=== PATIENT | male | born 1945 | race Caucasian/White ===

== ENCOUNTER 2017-06-27 22:59 | Emergency (ER) | payer OTHER ==
[~2017-06-27] VITALS: Ht 177.8 cm; Wt 90.7 kg
[~2017-06-27 22:59] MED LIST: Amlodipine Bes2.5 MG PO; GABA100 PO; GLIP2.5ER PO; HYDSUL200 PO; LOSARTAN POTASS50 MG; Metformin HCl1000 MG PO; ROSU10TA PO; ROSUVASTATIN CA40 MG PO
[2017-06-28 00:35] LABS: Source, Urine Catheter
[2017-06-28 00:37] LABS: Bilirubin, Urine Neg (Neg); Blood, Urine 5+ (Neg); Glucose Qualitative, Urine 2+ (Neg); Ketones, Urine Neg (Neg); Leukocyte Esterase, Urine 1+ (Neg); Nitrite, Urine Neg (Neg); Protein, Urine 3+ (Neg); Urobilinogen, Urine NORM (Normal); pH, Urine 6.5 (5.0-8.0)
[2017-06-28 00:40] LABS: Appearance, Urine Hazy (Clear); Color, Urine Amber (P-Yellow)
[2017-06-28 00:44] LABS: Bacteria Rare /hpf; Red Blood Cells, Urine TNTC /hpf (0-2); Squamous Epithelial Cells Not Seen /hpf (Few); White Blood Cells, Urine 0-2 /hpf (0-5)
[2017-06-28] MEDS ORDERED: Flomax0.4 MG PO (01:00)
== END 2017-06-28 01:34 | disposition home or self-care (01) ==
LOC: ER 22:59
PROVIDERS: Physician Assistant
DX: N30.91 Cystitis, unspecified with hematuria (principal); Z79.899 Other long term (current) drug therapy; Z79.84 Long term (current) use of oral hypoglycemic drugs
CPT/HCPCS: 51702; 81001; 82947; 87086; 99283

== ENCOUNTER → 2018-11-17 | Outpatient (CLI) | payer OTHER ==
[~2018-11-17] MED LIST changes: +Aspirin EC81 MG PO; +ELIQUIS5 MG PO; +FAMO20 PO; +Flomax0.4 MG PO; +GABA300 PO; +INSULANPEN SC; -LOSARTAN POTASS50 MG; +LOSARTAN POTASS50 MG PO; +METO25ER PO
== END | disposition home or self-care (01) ==
LOC: PLD 11:15 → LAB SHORT 11:15
DX: L98.6 Other infiltrative disorders of the skin and subcutaneous tissue (principal); D22.72 Melanocytic nevi of left lower limb, including hip
CPT/HCPCS: 88305; 88342

== ENCOUNTER → 2018-12-02 | Outpatient (CLI) | payer OTHER | END | disposition home or self-care (01) | LOC: LAB SHORT 07:56 → PLD 07:56 | DX: D22.72 Melanocytic nevi of left lower limb, including hip (principal) | CPT/HCPCS: 88305 ==

== ENCOUNTER 2018-12-29 21:24 | Emergency (ER) | payer OTHER ==
[~2018-12-29] VITALS: Ht 177.8 cm; Wt 90.7 kg
[~2018-12-29 21:24] MED LIST changes: -Aspirin EC81 MG PO; -ELIQUIS5 MG PO; -FAMO20 PO; -GABA300 PO; -INSULANPEN SC; -METO25ER PO
[2018-12-29 22:01] LABS: Source, Urine Clean Catch
[2018-12-29 22:05] LABS: Bilirubin, Urine Neg (Neg); Blood, Urine 5+ (Neg); Glucose Qualitative, Urine Neg (Neg); Ketones, Urine 1+ (Neg); Leukocyte Esterase, Urine Neg (Neg); Nitrite, Urine Neg (Neg); Protein, Urine 4+ (Neg); Urobilinogen, Urine NORM (Normal); pH, Urine 6.5 (5.0-8.0)
[2018-12-29 22:15] LABS: Appearance, Urine Bloody (Clear); Color, Urine Red (P-Yellow)
[2018-12-29 22:17] LABS: Red Blood Cells, Urine TNTC /hpf (0-2); Squamous Epithelial Cells Rare /hpf (Few)
[2018-12-29 22:18] LABS: Bacteria Mod /hpf
[2018-12-29] MEDS ORDERED: INSULANPEN SC (23:04)
[2018-12-29] MEDS ORDERED: METO25ER PO (23:05)
[2018-12-29] MEDS ORDERED: GABA300 PO (23:06)
[2018-12-29] MEDS ORDERED: ELIQUIS5 MG PO (23:07)
[2018-12-29] MEDS ORDERED: Aspirin EC81 MG PO (23:07)
[2018-12-29] MEDS ORDERED: FAMO20 PO (23:08)
== END 2018-12-30 00:03 | disposition home or self-care (01) ==
LOC: ER 21:24
PROVIDERS: Emergency Medicine
DX: R31.9 Hematuria, unspecified (principal); Z79.899 Other long term (current) drug therapy; Z79.4 Long term (current) use of insulin; Z79.82 Long term (current) use of aspirin
CPT/HCPCS: 51702; 81001; 87077; 87086; 87186; 99283-25

== ENCOUNTER → 2018-12-29 | Outpatient (CLI) | payer OTHER | END | disposition home or self-care (01) | LOC: PLD 08:50 → LAB SHORT 08:50 | DX: D48.5 Neoplasm of uncertain behavior of skin (principal) | CPT/HCPCS: 88305 ==

== ENCOUNTER → 2019-05-20 | Outpatient (CLI) | payer OTHER ==
[~2019-05-20] MED LIST changes: +Aspirin EC81 MG PO; +ELIQUIS5 MG PO; +FAMO20 PO; +GABA300 PO; +INSULANPEN SC; +METO25ER PO
== END | disposition home or self-care (01) ==
LOC: LAB SHORT 11:33 → PLD 11:33
DX: L81.4 Other melanin hyperpigmentation (principal)
CPT/HCPCS: 88305

== ENCOUNTER → 2020-02-09 | Outpatient (CLI) | payer OTHER | LOC: PLD 14:59 → LAB SHORT 14:59 | DX: D48.5 Neoplasm of uncertain behavior of skin (principal) | CPT/HCPCS: 88305 ==

== ENCOUNTER → 2021-07-16 | Outpatient (CLI) | payer OTHER ==
[~2021-07-16] MED LIST changes: +AMLO5 PO; +Diovan160 MG PO; +INSULANI SC; +METTREX2.5 PO; +POTA10T PO; +VALS80 PO
== END | disposition home or self-care (01) ==
LOC: LAB SHORT 11:22 → PLD 11:22
DX: D48.5 Neoplasm of uncertain behavior of skin (principal)
CPT/HCPCS: 88305; 88312

== ENCOUNTER 2021-07-19 07:53 | Day surgery (SDC) | payer OTHER ==
[~2021-07-19] VITALS: Ht 177.8 cm; Wt 89.3 kg
== END 2021-07-19 10:28 | disposition home or self-care (01) ==
LOC: ORSCSDS 07:53
PROVIDERS: Surgery
PROC: 0DBH8ZX Excision of Cecum, Via Natural or Artificial Opening Endoscopic, Diagnostic (ICD-10-PCS; principal; 2021-07-19 09:15)
PROC: 0DBL8ZX Excision of Transverse Colon, Via Natural or Artificial Opening Endoscopic, Diagnostic (ICD-10-PCS; principal; 2021-07-19 09:15)
DX: Z12.11 Encounter for screening for malignant neoplasm of colon (principal); Z86.010 Personal history of colon polyps; D12.3 Benign neoplasm of transverse colon; D12.0 Benign neoplasm of cecum; K52.9 Noninfective gastroenteritis and colitis, unspecified; E11.9 Type 2 diabetes mellitus without complications; I48.91 Unspecified atrial fibrillation; Z79.4 Long term (current) use of insulin; Z79.01 Long term (current) use of anticoagulants; Z79.899 Other long term (current) drug therapy
CPT/HCPCS: 82947; 88305; J2704

== ENCOUNTER 2021-12-21 09:51 | Emergency (ER) | payer OTHER ==
[~2021-12-21] VITALS: Ht 154.9 cm; Wt 90.7 kg
== END 2021-12-21 11:57 | disposition home or self-care (01) ==
LOC: ER 09:51
DX: M25.531 Pain in right wrist (principal); R07.81 Pleurodynia; V28.4XXA Motorcycle driver injured in noncollision transport accident in traffic accident, initial encounter; Z79.4 Long term (current) use of insulin; Z79.899 Other long term (current) drug therapy; Z79.01 Long term (current) use of anticoagulants
CPT/HCPCS: 73110; 90471; 90714; 99283-25; A9270

== ENCOUNTER 2022-10-15 09:26 | Day surgery (SDC) | payer OTHER ==
[~2022-10-15] VITALS: Ht 177.8 cm; Wt 84.8 kg
[2022-10-15] MEDS ORDERED: ERGO400 (09:54)
[2022-10-15 11:10] VITALS: BP 107/64
== END 2022-10-15 11:12 | disposition home or self-care (01) ==
LOC: ORSCSDS 09:26
PROVIDERS: Surgery
PROC: 0DBM8ZX Excision of Descending Colon, Via Natural or Artificial Opening Endoscopic, Diagnostic (ICD-10-PCS; principal; 2022-10-15 10:45)
DX: Z12.11 Encounter for screening for malignant neoplasm of colon (principal); Z86.010 Personal history of colon polyps; D12.4 Benign neoplasm of descending colon; I48.91 Unspecified atrial fibrillation; Z86.16 Personal history of COVID-19; I10 Essential (primary) hypertension; E78.5 Hyperlipidemia, unspecified; E11.9 Type 2 diabetes mellitus without complications; Z79.84 Long term (current) use of oral hypoglycemic drugs; Z79.4 Long term (current) use of insulin; Z79.899 Other long term (current) drug therapy
CPT/HCPCS: 82947; 88305; J2704; J7120

== ENCOUNTER 2023-09-05 11:41 | Emergency (ER) | payer OTHER ==
[~2023-09-05] VITALS: Ht 177.8 cm; Wt 90.7 kg
[~2023-09-05 11:41] MED LIST changes: +ERGO400
[2023-09-05 12:13] LABS: BASOPHILS ABSOLUTE AUTO 0.06 K/mm3 (0.00-0.23); BASOPHILS PERCENT AUTO 1 % (0-2); EOSINOPHILS ABSOLUTE AUTO 0.11 K/mm3 (0.00-0.68); EOSINOPHILS PERCENT AUTO 1 % (0-6); Hematocrit 51.1 % (37.0-53.0); Hemoglobin 16.6 g/dL (13.5-17.5); IMMATURE GRAN ABSOLUTE AUTO 0.03 K/mm3 (0.00-0.10); IMMATURE GRAN PERCENT AUTO 0 % (0-1); LYMPHOCYTES ABSOLUTE AUTO 2.36 K/mm3 (0.84-5.20); LYMPHOCYTES PERCENT AUTO 25 % (21-46); MONOCYTES PERCENT AUTO 11 % (4-13); Mean Corpuscular HGB 29.8 pg (26.0-34.0); Mean Corpuscular HGB Conc 32.5 g/dL (31.5-36.5); Mean Corpuscular Volume 92 fL (80-100); Mean Platelet Volume 11.2 fL (9.1-12.4); NEUTROPHILS ABSOLUTE AUTO 5.84 K/mm3 (1.96-9.15); NEUTROPHILS PERCENT AUTO 62 % (41-73); Platelet Count 265 K/mm3 (150-400); RDW Coefficient Variation 15.1 % (11.7-14.2); RDW Standard Deviation 50.6 fL (35.1-46.3); Red Blood Cell Count 5.57 M/mm3 (4.30-5.90)
[2023-09-05] MEDS ORDERED: B-12500 MC2 PO (12:18)
[2023-09-05] MEDS ORDERED: MAGNESIUM OXID500 MG PO (12:20)
[2023-09-05] MEDS ORDERED: DERMACINRX FOL1 EAC2 PO (12:20)
[2023-09-05] MEDS ORDERED: VITAMIN E67 MG PO (12:21)
[2023-09-05] MEDS ORDERED: Diltiazem HCl 5 MG / ML 5ML Vial IV ONE (12:45)
[2023-09-05 12:54] LABS: Albumin/Globulin Ratio 1.1 (0.8-1.8); Bilirubin, Total 0.6 mg/dL (0.1-1.0); Bun/Creatinine Ratio 21.5 (12.0-20.0); Calcium, Blood 9.5 mg/dL (8.5-10.1); Creatinine, Blood 0.98 mg/dL (0.60-1.20); Globulin, Blood 3.7 g/dL (2.2-4.0); Potassium, Blood 4.4 mmol/L (3.5-5.5); Total Protein, Blood 7.7 g/dL (6.4-8.2)
[2023-09-05 15:00] VITALS: BP 115/70
== END 2023-09-05 15:30 | disposition home or self-care (01) ==
LOC: ER 11:41
PROVIDERS: Student in an Organized Health Care Education/Training Program
DX: I48.91 Unspecified atrial fibrillation (principal); Z91.048 Other nonmedicinal substance allergy status; Z88.8 Allergy status to other drugs, medicaments and biological substances; Z79.899 Other long term (current) drug therapy
CPT/HCPCS: 80053; 82947; 83880; 84484; 85025; 93005; 93010; 96374; 99285-25

== ENCOUNTER 2024-09-02 07:06 | Day surgery (SDC) | payer OTHER ==
[~2024-09-02] VITALS: Ht 177.8 cm; Wt 90.5 kg
[~2024-09-02 07:06] MED LIST changes: +B-12500 MC2 PO; +Balanced Salt Epinephrine Irrigation Solution 500 mL IR SCH; +DERMACINRX FOL1 EAC2 PO; +Diazepam 5 MG Tab PO PRN; +Diazepam 5 MG Tab PO SCH; +Lidocaine HCl/Pf 1% 5 ML VIAL ONE; +Lidocaine HCl/Pf 1% 5 ML VIAL XX SCH; +MAGNESIUM OXID500 MG PO; +Moxifloxacin HCL 0.5 MG/0.1 ML 0.4MLSYR LEFTEYE SCH; +Ondansetron 4 MG SoluTab MM PRN; +PHENYLEPHRINE\\TROPICAMIDE\\TETRACAINE OPHTHALMIC DILATING SOLN LEFTEYE PRN; +Povidone-Iodine 450 DROP/30 ML Solution LEFTEYE SCH; +Povidone-Iodine 450 DROP/30 ML Solution ONE; +Tetracaine HCl/Pf 0.5% Opth Soln 4 ml ONE; +Triamcinolone Inj Susp 40 MG / ML 1ML Vial INJ SCH; +Triamcinolone Inj Susp 40 MG / ML 1ML Vial ONE; +VITAMIN E67 MG PO
[2024-09-02] MEDS ORDERED: Diazepam 10 MG Tab ONE (07:24)
[2024-09-02] MEDS ORDERED: FURO20 PO (07:49)
--- NOTE | 2024-09-02 08:32 | NUR ---
09/02/24 0832 Veronica Souza 0813: REASSESSED ANXIETY LEVEL IS NOW "1 OR 2 OUT OF 10"
--- NOTE | 2024-09-02 08:34 | NUR ---
09/02/24 0834 Meredith Canela BP-[id number]/74 P-51 SPO2 100% 10L BLOW BY O2
[2024-09-02 08:52] VITALS: BP 149/74
--- NOTE | 2024-09-02 09:11 | NUR ---
09/02/[address] Sa[address]ra BROUGHT TO BEDSIDE
== END 2024-09-02 09:11 | disposition home or self-care (01) ==
LOC: ORSCSDS 07:06
PROVIDERS: Ophthalmology
PROC: 08RK3JZ Replacement of Left Lens with Synthetic Substitute, Percutaneous Approach (ICD-10-PCS; principal; 2024-09-02 08:30)
DX: E11.36 Type 2 diabetes mellitus with diabetic cataract (principal); H25.813 Combined forms of age-related cataract, bilateral; H34.8112 Central retinal vein occlusion, right eye, stable; I48.91 Unspecified atrial fibrillation; E78.00 Pure hypercholesterolemia, unspecified; E78.5 Hyperlipidemia, unspecified; I10 Essential (primary) hypertension; Z79.4 Long term (current) use of insulin; Z79.84 Long term (current) use of oral hypoglycemic drugs; Z79.01 Long term (current) use of anticoagulants; Z79.899 Other long term (current) drug therapy
CPT/HCPCS: 82947; A9270; J2003; J3301; V2632

== ENCOUNTER 2025-04-19 08:59 | Inpatient (IN) | payer OTHER ==
[~2025-04-19] VITALS: Ht 177.8 cm; Wt 88.7 kg
[~2025-04-19 08:59] MED LIST changes: -Balanced Salt Epinephrine Irrigation Solution 500 mL IR SCH; -DERMACINRX FOL1 EAC2 PO; -Diazepam 5 MG Tab PO PRN; -Diazepam 5 MG Tab PO SCH; -ERGO400; +ERGO400 PO; +FOLIC ACID0.4 MG PO; +FURO20 PO; +GLUCOPHAGE1000 M1 PO; -Lidocaine HCl/Pf 1% 5 ML VIAL ONE; -Lidocaine HCl/Pf 1% 5 ML VIAL XX SCH; -METO25ER PO; +METO50ER PO; -Metformin HCl1000 MG PO; -Moxifloxacin HCL 0.5 MG/0.1 ML 0.4MLSYR LEFTEYE SCH; -Ondansetron 4 MG SoluTab MM PRN; -PHENYLEPHRINE\\TROPICAMIDE\\TETRACAINE OPHTHALMIC DILATING SOLN LEFTEYE PRN; -Povidone-Iodine 450 DROP/30 ML Solution LEFTEYE SCH; -Povidone-Iodine 450 DROP/30 ML Solution ONE; -ROSU10TA PO; +ROSUVASTATIN CA10 MG PO; -Tetracaine HCl/Pf 0.5% Opth Soln 4 ml ONE; -Triamcinolone Inj Susp 40 MG / ML 1ML Vial INJ SCH; -Triamcinolone Inj Susp 40 MG / ML 1ML Vial ONE
[2025-04-19] MEDS ORDERED: CefTRIAXone Sodium 1,000 MG in NS 100 ML IV ONE (09:25)
[2025-04-19 09:51] LABS: BASOPHILS ABSOLUTE AUTO 0.07 K/mm3 (0.00-0.23); BASOPHILS PERCENT AUTO 1 % (0-2); EOSINOPHILS ABSOLUTE AUTO 0.12 K/mm3 (0.00-0.68); EOSINOPHILS PERCENT AUTO 1 % (0-6); Hematocrit 43.2 % (37.0-53.0); Hemoglobin 14.0 g/dL (13.5-17.5); IMMATURE GRAN ABSOLUTE AUTO 0.05 K/mm3 (0.00-0.10); IMMATURE GRAN PERCENT AUTO 1 % (0-1); LYMPHOCYTES ABSOLUTE AUTO 1.67 K/mm3 (0.84-5.20); LYMPHOCYTES PERCENT AUTO 18 % (21-46); MONOCYTES ABSOLUTE AUTO 1.30 K/mm3 (0.16-1.47); MONOCYTES PERCENT AUTO 14 % (4-13); Mean Corpuscular HGB Conc 32.4 g/dL (31.5-36.5); Mean Corpuscular Volume 90 fL (80-100); NEUTROPHILS ABSOLUTE AUTO 5.96 K/mm3 (1.96-9.15); NEUTROPHILS PERCENT AUTO 65 % (41-73); NRBC ABSOLUTE 0.00 K/mm3 (0.00-0.02); NRBC Auto 0.0 /100 WBC (0.0-0.2); Platelet Count 256 K/mm3 (150-400); RDW Coefficient Variation 13.8 % (11.7-14.2); RDW Standard Deviation 44.6 fL (35.1-46.3)
[2025-04-19 10:11] LABS: Alanine Aminotransfer (ALT/SGP 30.0 U/L (12-78); Albumin, Blood 4.1 g/dL (3.4-5.0); Albumin/Globulin Ratio 1.1 (0.8-1.8); Anion Gap 7.0 mmol/L (3-11); Aspartate Aminotrans (AST/SGOT 28.0 U/L (12-37); Bilirubin, Total 0.5 mg/dL (0.1-1.0); Blood Urea Nitrogen 24.0 mg/dL (8-24); CO2, Blood 28.0 mmol/L (21-32); Calcium, Blood 9.0 mg/dL (8.5-10.1); Chloride, Blood 108.0 mmol/L (98-108); Creatinine, Blood 1.28 mg/dL (0.60-1.20); Globulin, Blood 3.6 g/dL (2.2-4.0); Glucose, Blood 82.0 mg/dL (70-99); Potassium, Blood 4.5 mmol/L (3.5-5.5); Sodium, Blood 138.0 mmol/L (136-145); Total Protein, Blood 7.7 g/dL (6.4-8.2)
[2025-04-19] MEDS ORDERED: FLU VACC TS2025(65UP)/MF59C/PF 45 MCG/0.5 ML SYRINGE IM SCH (13:00)
[2025-04-19] MEDS ORDERED: MetroNIDAZOLE 500MG/NS 100 ml 100 ML IV SCH (13:30)
[2025-04-19 15:11] VITALS: BP 155/87
[2025-04-19] MEDS ORDERED: NS 250 ML IV PRN (15:20)
[2025-04-19] MEDS ORDERED: Insulin Regular 100 UNIT/ML 10ML Vial SC SCH ×2 (16:30)
--- NOTE | 2025-04-19 18:01 | NUR ---
ER ADMIT PT ADMITTED TO 306 FOR ABD WALL CELLULITIS. PLAN FOR I/D TOMORROW. LAST DOSE OF ELIQUIS 04/19/25 APPROX 0900. NPO AT MIDNIGHT. INDEPENDENT IN THE ROOM ABLE TO MAKE NEEDS KNOWN. R/A. HX:AFIB, SCD IN PLACE.
[2025-04-19 19:20] VITALS: BP 132/75
[2025-04-19] MEDS ORDERED: Insulin Glargine-Yfgn 100 Unit/mL 3 ML SYR SC SCH (21:00)
[2025-04-19] MEDS ORDERED: Lactobacil 2-S.Thermo-Bifido 1 1 Cap PO SCH (21:00)
--- NOTE | 2025-04-19 22:25 | NUR ---
NOTIFIED DAMON (PLC ENGINEER) OF PT'S APPREHENSION TO TAKE HS 10 UNITS GLARGINE W/CBG 118 AFTER RECEIVING A SNACK AND W/NPO STATUS AFTER MN. HE ALSO HAD BEEN HYPOGLYCEMIC THE PREVIOUS MORNING W/CBG 59 WHEN EATING/DRINKING. PROVIDER AUTHORIZED HOLDING HS DOSE. PLAN TO MONITOR CLOSELY.
[2025-04-20] VITALS (17 sets, daily range): BP systolic 105–159; BP diastolic 63–102
--- NOTE | 2025-04-20 05:02 | NUR ---
SUMMARY: PT A/OX4, ENDORSES NEEDS AND IS INDEPENDENT IN ROOM. HE WAS MADE NPO AT [place] FOR I&D OF OF ABDO WALL ABSCESS W/CELLULITIS. HS GLARGINE WAS HELD PER MD INSTRUCTION D/T BRITTLE BLOOD SUGARS AND HS CBG 118 AFTER RECEIVING A SNACK. PT'S OWN DEXCOM ALERTED TO CBG DOWN TO 100 THIS AM AND POC TEST REVEALED CBG OF 86. MADE AWARE W/NO NEW ORDERS RECEIVED. PT AWARE OF S/S HYPOGLYCEMIA AND KNOWS TO ALERT STAFF IF CONT'S TO DROP, AM LABS PENDING. IV ABX PROVIDED PER EMAR THEN SL'D AND PT WAS MEDICATED W/PRN OXYCODONE FOR TOLERABLE RELIEF OF ABDO PAIN. PT COMMENCED ON PROBIOTICS TONIGHT AND WAS UP AD AILYN IN ROOM TO USE RESTROOM. NO ACUTE CHANGES. VSS AND AFEBRILE. WILL REPORT TO DAY RN.
[2025-04-20 05:28] LABS: BASOPHILS ABSOLUTE AUTO 0.05 K/mm3 (0.00-0.23); BASOPHILS PERCENT AUTO 0 % (0-2); EOSINOPHILS ABSOLUTE AUTO 0.13 K/mm3 (0.00-0.68); EOSINOPHILS PERCENT AUTO 1 % (0-6); Hematocrit 38.7 % (37.0-53.0); Hemoglobin 12.5 g/dL (13.5-17.5); IMMATURE GRAN ABSOLUTE AUTO 0.05 K/mm3 (0.00-0.10); IMMATURE GRAN PERCENT AUTO 0 % (0-1); LYMPHOCYTES ABSOLUTE AUTO 1.47 K/mm3 (0.84-5.20); LYMPHOCYTES PERCENT AUTO 13 % (21-46); MONOCYTES ABSOLUTE AUTO 1.54 K/mm3 (0.16-1.47); MONOCYTES PERCENT AUTO 13 % (4-13); Mean Corpuscular HGB Conc 32.3 g/dL (31.5-36.5); Mean Corpuscular Volume 90 fL (80-100); NEUTROPHILS ABSOLUTE AUTO 8.44 K/mm3 (1.96-9.15); NEUTROPHILS PERCENT AUTO 72 % (41-73); NRBC ABSOLUTE 0.00 K/mm3 (0.00-0.02); NRBC Auto 0.0 /100 WBC (0.0-0.2); Platelet Count 235 K/mm3 (150-400); RDW Coefficient Variation 14.1 % (11.7-14.2); RDW Standard Deviation 45.6 fL (35.1-46.3)
[2025-04-20 06:18] LABS: Alanine Aminotransfer (ALT/SGP 23.0 U/L (12-78); Albumin, Blood 3.2 g/dL (3.4-5.0); Albumin/Globulin Ratio 1.0 (0.8-1.8); Anion Gap 7.0 mmol/L (3-11); Aspartate Aminotrans (AST/SGOT 24.0 U/L (12-37); Bilirubin, Total 0.5 mg/dL (0.1-1.0); Blood Urea Nitrogen 18.0 mg/dL (8-24); CO2, Blood 27.0 mmol/L (21-32); Calcium, Blood 8.6 mg/dL (8.5-10.1); Chloride, Blood 109.0 mmol/L (98-108); Creatinine, Blood 1.14 mg/dL (0.60-1.20); Globulin, Blood 3.1 g/dL (2.2-4.0); Glucose, Blood 74.0 mg/dL (70-99); Potassium, Blood 4.3 mmol/L (3.5-5.5); Sodium, Blood 139.0 mmol/L (136-145); Total Protein, Blood 6.3 g/dL (6.4-8.2)
[2025-04-20] MEDS ORDERED: CefTRIAXone Sodium 1,000 MG in NS 100 ML IV SCH (09:00)
[2025-04-20] MEDS ORDERED: Dexamethasone Sod Phos 10 MG/ML 1ML VIAL ONE (10:11)
[2025-04-20] MEDS ORDERED: Ondansetron HCl 2 MG / ML 2ML Vial ONE (10:11)
[2025-04-20] MEDS ORDERED: Phenylephrine HCl 100 MCG/ML-NS 10MLSYR (1MG/10ML) ONE (10:11)
[2025-04-20] MEDS ORDERED: FentaNYL Citrate 50 MCG/ML 2 ML Injection ONE ×2 (10:12→12:14)
[2025-04-20] MEDS ORDERED: Bupivacaine 0.25% Epi 1:200000 30 ML Vial ONE (11:06)
[2025-04-20] MEDS ORDERED: D5W-1/2NS 1,000 ML IV SCH (11:15)
[2025-04-20] MEDS ORDERED: CEPH500 PO (11:55)
[2025-04-20] MEDS ORDERED: FentaNYL Citrate 50 MCG/ML 2 ML Injection IV PRN ×2 (12:05→12:10)
[2025-04-20] MEDS ORDERED: ePHEDrine Sulfate 50 MG/ML 1ML Injection IV PRN (12:05)
[2025-04-20] MEDS ORDERED: HydrALAZINE HCl 20 MG / ML 1ML Vial IV PRN (12:10)
[2025-04-20] MEDS ORDERED: Albuterol 2.5 MG/3 ML VIAL INH PRN (12:10)
[2025-04-20] MEDS ORDERED: Metoclopramide HCl 5MG / ML 2ML Vial IV PRN (12:10)
[2025-04-20] MEDS ORDERED: Ondansetron HCl 2 MG / ML 2ML Vial IV PRN (12:10)
[2025-04-20] MEDS ORDERED: HYDROmorphone HCl/Pf 1MG SYR IV PRN (12:10)
[2025-04-20] MEDS ORDERED: HYDROmorphone HCl/Pf 1MG SYR ONE (12:25)
[2025-04-20] MEDS ORDERED: Metoprolol Tartrate 5 ML IV ONE (12:40)
[2025-04-20] MEDS ORDERED: MetFORMIN HCl 500 mg PO SCH (17:00)
--- NOTE | 2025-04-20 19:22 | NUR ---
PT DOING WELL AFTER PROCEDURE, DRESSING CHANGED AT REQUEST OF DR. RAPHAEL. PAIN MEDICATION ADMINISTERED ORDERED. PT IN AFIB DURING PROCEDURE NOW ON TELE, NOT SYMPTOMATIC. ORIENTED X4, INDEPENDENT IN THE ROOM.
[2025-04-20] MEDS ORDERED: INSULANI SC (19:39)
[2025-04-20] MEDS ORDERED: Insulin Glargine-Yfgn 100 Unit/mL 3 ML SYR SC SCH (21:00)
[2025-04-21 00:27] VITALS: BP 122/68
--- NOTE | 2025-04-21 03:51 | NUR ---
SHIFT SUMMARY NO ACUTE EVENTS DURING THIS SHIFT. TELE: CONVERTED FROM A-FIB BACK TO NSR. BRADYCARDIC, IN MID 40'S TO 63BPM. PT DENIES CP/PRESSURE/DIZZINESS AND SOB. O2 SAT'S>93% ON RA. HS B, LANTUS ADMINISTERED ORDERED. ABD DRESSING C/D/I. ABD DRESSING IS MARKED WITH A PEN; THE AREA WITH SMALL AMOUNT OF DRAINAGE. IV ABX INFUSED ORDERED. PT DENIES PAIN AND DISCOMFORT. PT IS A/O X4, ABLE TO MAKE HIS NEEDS KNOWN AND COOPERATIVE WITH CARE. BED AT THE LOWEST POSITION, CALL LIGHT W/I REACH.
[2025-04-21 04:37] VITALS: BP 110/69
[2025-04-21 05:33] LABS: BASOPHILS ABSOLUTE AUTO 0.03 K/mm3 (0.00-0.23); BASOPHILS PERCENT AUTO 0 % (0-2); EOSINOPHILS ABSOLUTE AUTO 0.00 K/mm3 (0.00-0.68); EOSINOPHILS PERCENT AUTO 0 % (0-6); Hematocrit 38.5 % (37.0-53.0); Hemoglobin 12.6 g/dL (13.5-17.5); IMMATURE GRAN ABSOLUTE AUTO 0.03 K/mm3 (0.00-0.10); IMMATURE GRAN PERCENT AUTO 0 % (0-1); LYMPHOCYTES ABSOLUTE AUTO 1.19 K/mm3 (0.84-5.20); LYMPHOCYTES PERCENT AUTO 12 % (21-46); MONOCYTES ABSOLUTE AUTO 0.90 K/mm3 (0.16-1.47); MONOCYTES PERCENT AUTO 9 % (4-13); Mean Corpuscular HGB Conc 32.7 g/dL (31.5-36.5); Mean Corpuscular Volume 89 fL (80-100); NEUTROPHILS ABSOLUTE AUTO 8.13 K/mm3 (1.96-9.15); NEUTROPHILS PERCENT AUTO 79 % (41-73); NRBC ABSOLUTE 0.00 K/mm3 (0.00-0.02); NRBC Auto 0.0 /100 WBC (0.0-0.2); Platelet Count 265 K/mm3 (150-400); RDW Coefficient Variation 13.8 % (11.7-14.2); RDW Standard Deviation 44.6 fL (35.1-46.3)
[2025-04-21 06:03] LABS: Anion Gap 10.0 mmol/L (3-11); Blood Urea Nitrogen 34.0 mg/dL (8-24); CO2, Blood 25.0 mmol/L (21-32); Calcium, Blood 8.5 mg/dL (8.5-10.1); Chloride, Blood 106.0 mmol/L (98-108); Creatinine, Blood 1.32 mg/dL (0.60-1.20); Glucose, Blood 252.0 mg/dL (70-99); Potassium, Blood 4.7 mmol/L (3.5-5.5); Sodium, Blood 136.0 mmol/L (136-145)
[2025-04-21 08:05] VITALS: BP 134/74
[2025-04-21] MEDS ORDERED: Insulin Glargine-Yfgn 100 Unit/mL 3 ML SYR SC SCH (09:00)
[2025-04-21] MEDS ORDERED: SENN187 PO (10:29)
[2025-04-21] MEDS ORDERED: VISBIOME 112.51 EACH PO (10:29)
[2025-04-21] MEDS ORDERED: OXYC5 PO (10:29)
[2025-04-21] MEDS ORDERED: SULTRIDS PO (10:30)
[2025-04-21 11:18] VITALS: BP 132/59
--- NOTE | 2025-04-21 13:11 | NUR ---
pt discharged home with spouse at bedside. discharge instructions discussed with pt and spouse. wound care provided with at bedside. education provided on dressing change. pt and spouse verbalizes understanding. no questions or concerns at time of discharge.
== END 2025-04-21 12:50 | disposition home or self-care (01) | DRG 857 ==
LOC: ER 08:59 → MEDS 12:48 → ENPENDDIS 04-21 08:46 → MEDS 04-21 12:50
PROVIDERS: Physician Assistant; Student in an Organized Health Care Education/Training Program; ADMIT Internal Medicine
PROC: 3E02340 Introduction of Influenza Vaccine into Muscle, Percutaneous Approach (ICD-10-PCS; 2025-04-19)
PROC: 3E03329 Introduction of Other Anti-infective into Peripheral Vein, Percutaneous Approach (ICD-10-PCS; 2025-04-20)
PROC: 0W9F0ZZ Drainage of Abdominal Wall, Open Approach (ICD-10-PCS; principal; 2025-04-20 11:30)
DX: T80.29XA Infection following other infusion, transfusion and therapeutic injection, initial encounter (principal); I13.0 Hypertensive heart and chronic kidney disease with heart failure and stage 1 through stage 4 chronic kidney disease, or unspecified chronic kidney disease; L02.211 Cutaneous abscess of abdominal wall; I50.32 Chronic diastolic (congestive) heart failure; N17.9 Acute kidney failure, unspecified; L03.311 Cellulitis of abdominal wall; Z96.612 Presence of left artificial shoulder joint; M06.9 Rheumatoid arthritis, unspecified; E11.22 Type 2 diabetes mellitus with diabetic chronic kidney disease; I48.0 Paroxysmal atrial fibrillation; D72.829 Elevated white blood cell count, unspecified; D63.1 Anemia in chronic kidney disease; T38.3X5A Adverse effect of insulin and oral hypoglycemic [antidiabetic] drugs, initial encounter; E11.649 Type 2 diabetes mellitus with hypoglycemia without coma; Z23 Encounter for immunization; N18.2 Chronic kidney disease, stage 2 (mild); Z90.79 Acquired absence of other genital organ(s); Z86.718 Personal history of other venous thrombosis and embolism; Z98.52 Vasectomy status; Z88.8 Allergy status to other drugs, medicaments and biological substances; Z79.01 Long term (current) use of anticoagulants; Z91.048 Other nonmedicinal substance allergy status; Z79.84 Long term (current) use of oral hypoglycemic drugs; Z79.899 Other long term (current) drug therapy; Z79.4 Long term (current) use of insulin; Z86.79 Personal history of other diseases of the circulatory system; Z85.820 Personal history of malignant melanoma of skin; Z98.1 Arthrodesis status; Z89.021 Acquired absence of right finger(s); Z98.890 Other specified postprocedural states; Z87.19 Personal history of other diseases of the digestive system; Y84.9 Medical procedure, unspecified as the cause of abnormal reaction of the patient, or of later complication, without mention of misadventure at the time of the procedure
CPT/HCPCS: 36415; 74177; 80048; 80053; 82947; 83690; 85025; 96365-59; 99284-25; A9270; J0696; J1100; J1171; J1815; J2371; J2405; J2704; J3010; J7042; J7050; J7120; Q9967